=== PATIENT | male | born 1985 | race African-American/Black ===

== ENCOUNTER 2022-10-06 13:33 | Emergency (ER) | payer MEDICAID, OTHER ==
[~2022-10-06] VITALS: Ht 188 cm; Wt 81.0 kg
[2022-10-06 13:50] VITALS: TEMP 98.3; O2SAT 98
[2022-10-06 15:30] VITALS: BP 135/90; PULSE 91; RESP 20
[2022-10-06] MEDS ORDERED: IBUPROFEN 600MG TABLET PO ONE (15:30)
[2022-10-06] MEDS ORDERED: CEPH500C2 MT (15:46)
== END 2022-10-07 13:00 | disposition home or self-care (01) ==
LOC: ER 14:11
DX: S61.216A Laceration without foreign body of right little finger without damage to nail, initial encounter (principal); J45.909 Unspecified asthma, uncomplicated; W26.0XXA Contact with knife, initial encounter; Y93.89 Activity, other specified; Y92.89 Other specified places as the place of occurrence of the external cause; Y99.8 Other external cause status
CPT/HCPCS: 12002; 99283